=== PATIENT | female | born 1980 | race Caucasian/White ===

== ENCOUNTER 2018-06-18 15:04 | Emergency (ER) | payer BC ==
[~2018-06-18] VITALS: Ht 167.6 cm; Wt 63.5 kg
--- NOTE | 2018-06-18 15:04 | NUR ---
Patient is AOx4, extremely anxious & tearful. "My son is getting surgery for hernia." per patient's verbalization. Comfort and safety measures initiated.
[2018-06-18] MEDS ORDERED: LEVO75TA7 PO (15:19)
[2018-06-18] MEDS: LORAZEPAM 2 MG/1 ML VIAL IV ONE (15:22)
[2018-06-18 15:23] LABS: BASOPHILS # (AUTO) 0.1 K/uL (0.0-8.0); BASOPHILS % (AUTO) 0.9 % (0.0-2.0); EOSINOPHILS # (AUTO) 0.4 K/uL (0.0-0.7); EOSINOPHILS % (AUTO) 4.8 % (0.0-7.0); HEMATOCRIT 41.4 % (31.2-41.9); LYMPHOCYTES % (AUTO) 34.2 % (20.5-51.5); MEAN CORPUSCULAR HGB CONC 34 g/dL (32.3-35.6); MEAN CORPUSCULAR VOLUME 85.9 fL (75.5-95.3); MONOCYTES # (AUTO) 0.7 K/uL (2.0-10.0); MONOCYTES % (AUTO) 8.1 % (0.0-11.0); NEUTROPHILS # (AUTO) 4.6 K/uL (1.8-8.9); PLATELET COUNT (AUTO) 322 K/uL (179-408); RED BLOOD CELL COUNT(AUTO) 4.82 MIL/uL (3.63-4.92); WHITE BLOOD COUNT (AUTO) 8.9 K/uL (3.8-11.8)
[2018-06-18] MEDS ORDERED: LORAZEPAM 2 MG/1 ML VIAL ONE (15:23)
[2018-06-18 15:41] LABS: CREATININE 0.7 mg/dL (0.6-1.3); POTASSIUM 3.4 mmol/L (3.5-5.1)
[2018-06-18] MEDS ORDERED: LORAZEPAM 0.5 MG TABLET ONE (15:48)
[2018-06-18] MEDS: LORAZEPAM 0.5 MG TABLET PO ONE (15:51)
--- NOTE | 2018-06-18 16:22 | NUR ---
Patiwnt feels much better. Patient discharged to home in stable conditon. Written and verbal after care instructions given to patient and family. Patient verbalizes understanding of instructions. Deep breathing exercises were taught with return demonstration was done by patient.
== END 2018-06-18 16:25 | disposition home or self-care (01) ==
LOC: ER 15:05
DX: F41.9 Anxiety disorder, unspecified (principal); R06.4 Hyperventilation
CPT/HCPCS: 36415; 70030-TC; 71045; 85025; 85730; 93005; A4663; J2060